=== PATIENT | male | born 1945 ===

== ENCOUNTER 2021-04-07 19:48 | Inpatient (IN) | payer MEDICARE, OTHER ==
[2021-04-08 00:16] VITALS: BMI 29.0
[2021-04-08] MEDS ORDERED: Bisacodyl 10 MG SUPP PR PRN (07:13)
[2021-04-08] MEDS ORDERED: Calcium Carbonate 500 MG ChewTAB PO PRN (07:13)
[2021-04-08] MEDS ORDERED: Ondansetron PF 4 MG/2 ML Vial IVP PRN (07:13)
[2021-04-08] MEDS ORDERED: Sodium Chloride 0.9% 1,000 ML IV SCH (07:15)
[2021-04-08] MEDS ORDERED: Zolpidem Tartrate 5 MG TAB PO PRN (07:23)
[2021-04-08 07:50] LABS: #Basophils 0.1 thou/uL (0.0-0.2); #Lymphocytes 1.8 thou/uL (1.20-3.40); #Neutrophils 14.7 thou/uL (1.40-6.50); %Basophils 0.4 % (0.0-1.0); %Eosinophils 0.2 % (0.0-10.0); %Lymphocytes 9.8 % (21.0-51.0); %Monocytes 10.6 % (0.0-10.0); %Neutrophils 79.1 % (42.0-75.0); Hemoglobin 17.1 g/dL (14.0-18.0); Mean Corpuscular Hemoglobin 33.1 pg (27.0-31.0); Mean Corpuscular Volume 97.4 fL (78.0-98.0); Mean Platelet Volume 8.2 fL (7.4-10.4); Platelet Count 172 thou/uL (130-400); Red Blood Cell (RBC) Count 5.17 mill/uL (4.70-6.10); White Blood Cell (WBC) Count 18.6 thou/uL (4.8-10.8)
[2021-04-08 08:09] LABS: ALT (SGPT) 32 U/L (8-55); AST (SGOT) 25 U/L (5-34); Albumin 3.8 g/dL (3.4-4.8); Alkaline Phosphatase 53 U/L (40-110); Anion Gap 12 mmol/L (10-20); BUN (Urea Nitrogen) 19 mg/dL (8.4-25.7); Bilirubin, Total 1.7 mg/dL (0.2-1.2); Calc. Creatinine Clearance 59 mL/min (70-130); Calcium 8.8 mg/dL (7.8-10.44); Carbon Dioxide 22 mmol/L (23-31); Chloride 103 mmol/L (98-107); Glucose 102 mg/dL (83-110); Potassium 4.2 mmol/L (3.5-5.1); Protein, Total 6.8 g/dL (5.8-8.1); Sodium 133 mmol/L (136-145)
[2021-04-08] MEDS: Aspirin 81 mg Enteric Coated Tablet PO SCH (08:39)
[2021-04-08] MEDS: Senokot S 8.6-50 MG TAB PO SCH ×2 (08:45→20:49)
[2021-04-08] MEDS: Allopurinol 300 MG TAB PO SCH (08:46)
[2021-04-08] MEDS: Loratadine 10 MG TAB PO SCH (08:46)
[2021-04-08] MEDS: Lisinopril 10 MG TAB PO SCH (08:46)
[2021-04-08] MEDS ORDERED: Enoxaparin Sodium 40 MG/0.4 ML SYRINGE SC SCH (09:00)
[2021-04-08] MEDS: Fluticasone Propionate Nasal Spray 16 gm Bottle NASAL SCH (10:00)
[2021-04-08] MEDS: Sodium Chloride 0.9% 1,000 ML IV SCH ×3 (10:00→23:57)
[2021-04-08 10:34] LABS: Bacteria/HPF None Seen HPF (None Seen); Bilirubin Negative (Negative); Blood, Urine 2+ (Negative); Clarity Clear (Clear); Glucose, Urine (Dipstick) Normal (Negative); Ketone, Urine Negative (Negative); Leukocyte Negative Leu/uL (Negative); Nitrite Negative (Negative); Protein, Urine (Dipstick) Negative (Neg-Trace); RBC/HPF 0-3 HPF (0-3); Specific Gravity, Urine 1.006 (1.002-1.036); Squamous Epithelial None Seen HPF (0-3); Urobilinogen Normal mg/dL (Less than 2); WBC/HPF None Seen HPF (0-3); pH, Urine 6.5 (5.0-9.0)
[2021-04-08] MEDS: HYDROcodone/Acetaminophen 5/325 mg Tablet PO PRN (15:59)
[2021-04-08] MEDS ORDERED: Morphine 4 MG/ML VIAL SLOW IVP PRN (17:44)
[2021-04-08] MEDS: Atorvastatin Calcium 40 MG TAB PO SCH (20:41)
[2021-04-09] MEDS: Cepastat Lozenges 1 LOZ PO PRN ×2 (04:47→17:03)
[2021-04-09] MEDS: Sodium Chloride 0.9% 1,000 ML IV SCH ×3 (04:53→17:03)
[2021-04-09 04:57] LABS: #Basophils 0.1 thou/uL (0.0-0.2); #Eosinphils 0.1 thou/uL (0.0-0.7); #Lymphocytes 1.6 thou/uL (1.20-3.40); #Monocytes 1.5 thou/uL (0.11-0.59); #Neutrophils 10.4 thou/uL (1.40-6.50); %Basophils 0.4 % (0.0-1.0); %Eosinophils 0.9 % (0.0-10.0); %Lymphocytes 11.4 % (21.0-51.0); %Monocytes 10.7 % (0.0-10.0); %Neutrophils 76.5 % (42.0-75.0); Hemoglobin 15.7 g/dL (14.0-18.0); Mean Corpuscular Hemoglobin 31.5 pg (27.0-31.0); Mean Corpuscular Volume 98.2 fL (78.0-98.0); Mean Platelet Volume 8.2 fL (7.4-10.4); Platelet Count 161 thou/uL (130-400); Red Blood Cell (RBC) Count 5.01 mill/uL (4.70-6.10); White Blood Cell (WBC) Count 13.7 thou/uL (4.8-10.8)
[2021-04-09 05:17] LABS: Anion Gap 10 mmol/L (10-20); BUN (Urea Nitrogen) 16 mg/dL (8.4-25.7); Calc. Creatinine Clearance 61 mL/min (70-130); Calcium 8.6 mg/dL (7.8-10.44); Carbon Dioxide 22 mmol/L (23-31); Chloride 105 mmol/L (98-107); Glucose 96 mg/dL (83-110); Potassium 4.2 mmol/L (3.5-5.1); Sodium 133 mmol/L (136-145)
[2021-04-09] MEDS ORDERED: Pantoprazole 40 MG VIAL IVP SCH (09:00)
[2021-04-09] MEDS ORDERED: Regadenoson 0.4 MG/5 ML SYRINGE ONE (09:05)
[2021-04-09] MEDS ORDERED: Iopamidol-370 76% 500 ML 1 ML ONE (10:09)
[2021-04-09] MEDS: Acetaminophen 325 MG TAB PO PRN ×3 (12:14→23:16)
[2021-04-09] MEDS: Allopurinol 300 MG TAB PO SCH (12:16)
[2021-04-09] MEDS: Lisinopril 10 MG TAB PO SCH (12:16)
[2021-04-09] MEDS: Aspirin 81 mg Enteric Coated Tablet PO SCH (12:16)
[2021-04-09] MEDS: Fluticasone Propionate Nasal Spray 16 gm Bottle NASAL SCH (12:19)
[2021-04-09] MEDS: Loratadine 10 MG TAB PO SCH (12:19)
[2021-04-09] MEDS: Senokot S 8.6-50 MG TAB PO SCH ×2 (17:03→19:51)
[2021-04-09] MEDS: Guaifenesin DM 100-10/5 ML UDCUP PO PRN ×2 (18:09→23:18)
[2021-04-09] MEDS: Atorvastatin Calcium 40 MG TAB PO SCH (19:43)
[2021-04-09] MEDS: Pantoprazole 40 MG VIAL IVP SCH (19:45)
[2021-04-10] MEDS: Sodium Chloride 0.9% 1,000 ML IV SCH ×2 (05:51→20:20)
[2021-04-10] MEDS: Guaifenesin DM 100-10/5 ML UDCUP PO PRN ×2 (06:12→22:26)
[2021-04-10] MEDS: Aspirin 81 mg Enteric Coated Tablet PO SCH (09:28)
[2021-04-10] MEDS: Allopurinol 300 MG TAB PO SCH (09:28)
[2021-04-10] MEDS: Lisinopril 10 MG TAB PO SCH (09:28)
[2021-04-10] MEDS: Fluticasone Propionate Nasal Spray 16 gm Bottle NASAL SCH (09:28)
[2021-04-10] MEDS: Pantoprazole 40 MG VIAL IVP SCH ×2 (09:29→20:20)
[2021-04-10] MEDS: Loratadine 10 MG TAB PO SCH (09:29)
[2021-04-10] MEDS: Senokot S 8.6-50 MG TAB PO SCH ×2 (09:30→21:19)
[2021-04-10] MEDS: Atorvastatin Calcium 40 MG TAB PO SCH (20:20)
[2021-04-10] MEDS: Acetaminophen 325 MG TAB PO PRN (22:26)
[2021-04-11] MEDS: Guaifenesin DM 100-10/5 ML UDCUP PO PRN ×2 (06:47→21:29)
[2021-04-11] MEDS: Sodium Chloride 0.9% 1,000 ML IV SCH (08:42)
[2021-04-11] MEDS: Pantoprazole 40 MG VIAL IVP SCH ×2 (08:42→21:30)
[2021-04-11] MEDS: Senokot S 8.6-50 MG TAB PO SCH ×2 (11:43→21:20)
[2021-04-11] MEDS: Fluticasone Propionate Nasal Spray 16 gm Bottle NASAL SCH (12:00)
[2021-04-11] MEDS: Allopurinol 300 MG TAB PO SCH (14:02)
[2021-04-11] MEDS: Aspirin 81 mg Enteric Coated Tablet PO SCH (14:02)
[2021-04-11] MEDS: Lisinopril 10 MG TAB PO SCH (14:03)
[2021-04-11] MEDS: Loratadine 10 MG TAB PO SCH (14:03)
[2021-04-11] MEDS: Atorvastatin Calcium 40 MG TAB PO SCH (21:30)
[2021-04-12] MEDS: Sodium Chloride 0.9% 1,000 ML IV SCH (03:22)
[2021-04-12] MEDS ORDERED: Bupivacaine 0.25% 10 ML VIAL ONE (08:00)
[2021-04-12] MEDS ORDERED: Lidocaine 1% w/Epinephrine 1:100K 20 ML VIAL ONE (08:00)
[2021-04-12] MEDS ORDERED: Fentanyl 100 MCG/2 ML VIAL ONE ×2 (09:01→10:32)
[2021-04-12] MEDS ORDERED: cefOXitin Sodium/Dextrose 2 GM/50 ML BAG ONE (09:16)
[2021-04-12] MEDS ORDERED: Dexamethasone 20 MG/5 ML VIAL ONE (09:23)
[2021-04-12] MEDS ORDERED: Phenylephrine 10 MG/ML VIAL ONE (09:23)
[2021-04-12] MEDS ORDERED: Esmolol 100 MG/10 ML VIAL ONE (09:23)
[2021-04-12] MEDS ORDERED: Lidocaine 1% PF 5 ML VIAL ONE (09:23)
[2021-04-12] MEDS ORDERED: Glycopyrrolate 0.2 MG/ML 5 ML SYRINGE ONE (09:23)
[2021-04-12] MEDS ORDERED: PROPOFOL 200 MG/20 ML VIAL ONE (09:23)
[2021-04-12] MEDS ORDERED: Rocuronium Bromide 10 MG/ML (10ML VIAL) ONE (09:23)
[2021-04-12] MEDS ORDERED: Ondansetron PF 4 MG/2 ML Vial ONE (09:23)
[2021-04-12] MEDS ORDERED: Iothalamate Meglumine 60% 50 ML VIAL FS ONE (09:24)
[2021-04-12] MEDS ORDERED: HYDROcodone/Acetaminophen 7.5/325 mg Tablet PO PRN (10:38)
[2021-04-12] MEDS ORDERED: Labetalol HCl 100 MG/20 ML VIAL SLOW IVP PRN (10:53)
[2021-04-12] MEDS ORDERED: Ondansetron HCl/PF 4 MG/2 ML Vial IVP PRN (10:53)
[2021-04-12] MEDS ORDERED: Promethazine HCl 25 MG/ML VIAL IVPB PRN (10:53)
[2021-04-12] MEDS ORDERED: Promethazine HCl 25 MG/ML VIAL IM PRN (10:53)
[2021-04-12] MEDS: Pantoprazole 40 MG VIAL IVP SCH (11:39)
[2021-04-12] MEDS: Lisinopril 10 MG TAB PO SCH (11:40)
[2021-04-12] MEDS: Fluticasone Propionate Nasal Spray 16 gm Bottle NASAL SCH (11:40)
[2021-04-12] MEDS: Aspirin 81 mg Enteric Coated Tablet PO SCH (11:40)
[2021-04-12] MEDS: Allopurinol 300 MG TAB PO SCH (11:40)
[2021-04-12] MEDS: Loratadine 10 MG TAB PO SCH (11:41)
[2021-04-12] MEDS: Senokot S 8.6-50 MG TAB PO SCH (11:42)
[2021-04-12 11:45] VITALS: TEMP 98.2
[2021-04-12] MEDS: Cepastat Lozenges 1 LOZ PO PRN (11:55)
[2021-04-12 12:32] VITALS: BP 168/72
[2021-04-12] MEDS: HYDROcodone/Acetaminophen 5/325 mg Tablet PO PRN (14:20)
== END 2021-04-12 14:50 | disposition home or self-care (01) | DRG 418 ==
LOC: 2SW 22:26 → OBSVTOIN 04-09 09:07
PROVIDERS: ADMIT Family Medicine; ATTEND Internal Medicine
PROC: BF101ZZ Fluoroscopy of Bile Ducts using Low Osmolar Contrast (ICD-10-PCS; principal; 2021-04-12)
PROC: 0FT44ZZ Resection of Gallbladder, Percutaneous Endoscopic Approach (ICD-10-PCS; 2021-04-12)
DX: K80.00 Calculus of gallbladder with acute cholecystitis without obstruction (principal); N17.9 Acute kidney failure, unspecified; R65.10 Systemic inflammatory response syndrome (SIRS) of non-infectious origin without acute organ dysfunction; Z20.822 Contact with and (suspected) exposure to COVID-19; I25.10 Atherosclerotic heart disease of native coronary artery without angina pectoris; E78.5 Hyperlipidemia, unspecified; I10 Essential (primary) hypertension; M10.9 Gout, unspecified; Z79.82 Long term (current) use of aspirin; Z79.899 Other long term (current) drug therapy; Z95.5 Presence of coronary angioplasty implant and graft
CPT/HCPCS: 36415; 47532; 71260; 74177; 76705; 78227; 78452; 80048; 80053; 81001; 82150; 83690; 84484; 85025; 87040; 87086; 87633; 88304; 93017; 94640; 96372; 96374; A9500; A9537; C1713; C9113; G0378; J0694; J1100; J1650; J2270; J2370; J2405; J2704; J2785; J3010; J7050; J7620; Q9961-U8; Q9967; S0020